=== PATIENT | female | born 2000 | race Caucasian/White ===

== ENCOUNTER 2018-01-04 05:37 | Emergency (ER) | payer MEDICAID ==
[~2018-01-04] VITALS: Ht 170.2 cm; Wt 115.2 kg
[~2018-01-04 05:37] MED LIST: METO-292 PO; ONDA4TAB6 PO; ONDA8TAB9 PO; POLY119P2 PO; PROC-8; SENN-121 PO; SUCR1ORA2 PO
[2018-01-04] MEDS ORDERED: normal saline 1000ml 1,000 ML IV ONE (05:55)
[2018-01-04] MEDS ORDERED: morphine 4 MG/ML inj SYRINge IV ONE (05:55)
[2018-01-04] MEDS ORDERED: famotidine/PF 10 mg/ml inj IV ONE (05:55)
[2018-01-04] MEDS ORDERED: ondansetron/PF 4mg/2ml inj IV ONE (05:55)
[2018-01-04 06:15] LABS: BASOPHILS % (AUTO) 0.4 % (0-1); EOSINOPHILS % (AUTO) 0.2 % (0-6); HEMATOCRIT 38.5 % (35.0-45.0); HEMOGLOBIN 13.4 g/dl (12.0-16.0); LYMPHOCYTES % (AUTO) 26.5 % (21-51); MEAN CORPUSCULAR HEMOGLOBIN 27.8 PG (27.0-31.0); MEAN CORPUSCULAR HGB CONC 34.7 % (33.0-36.5); MEAN CORPUSCULAR VOLUME 80.2 FL (78-98); MEAN PLATELET VOLUME 8.8 FL (7.4-10.4); MONOCYTES # (AUTO) 0.5 X10'3 (0-0.9); MONOCYTES % (AUTO) 4.2 % (2-12); NEUTROPHILS # (AUTO) 7.8 X10'3 (1.8-7.7); NEUTROPHILS % (AUTO) 68.7 % (42-75); PLATELET COUNT 367 X10'3 (140-440); RED CELL DISTRIBUTION WIDTH 14.3 % (11.5-14.5); WHITE BLOOD COUNT 11.4 X10'3 (4.5-11.0)
[2018-01-04 06:18] LABS: CLARITY,URINE TURBID (Clear); COLOR,URINE YELLOW (Yellow); GLUCOSE, URINE NEGATIVE (Neg); KETONES,URINE TRACE mg/dl (Neg); LEUKOCYTE ESTERASE ,URINE NEGATIVE (Neg); NITRITES, URINE NEGATIVE (Neg); OCCULT BLOOD,URINE NEGATIVE (Neg); PH,URINE 5.5 (4.8-8.0); PROTEIN,URINE TRACE mg/dl (Neg); UROBILINOGEN,URINE 0.2 E.U/dL (0.2-1.0)
[2018-01-04 06:19] LABS: UA COLLECTION TYPE CLN CATCH MIDSTREAM
[2018-01-04] MEDS ORDERED: SUMAtriptan succ. 6 MG/0.5ml vial SQ ONE (06:20)
[2018-01-04 06:21] LABS: URINE HCG POSITIVE (NEG)
[2018-01-04 06:26] LABS: BACTERIA,URINE NONE SEEN /HPF (Neg); MUCUS STRANDS NONE SEEN /LPF (Neg); RBC,URINE NONE SEEN /HPF (0-2); SQUAMOUS EPITHELIAL CELL,UR MANY /LPF (FEW); WBC,URINE NONE SEEN /HPF (0-4)
[2018-01-04 06:27] LABS: AMORPHOUS URATES 2+
[2018-01-04 06:32] LABS: ALANINE AMINOTRANSFERASE 22 U/L (12-78); ALBUMIN 3.9 G/DL (3.4-5.0); ALBUMIN/GLOBULIN RATIO 0.9 (1.1-1.5); ALKALINE PHOSPHATASE 60 IU/L (20-180); ANION GAP 14 (8-16); ASPARTATE AMINO TRANSFERASE 18 U/L (10-37); BILIRUBIN,TOTAL 0.5 MG/DL (0.1-1.0); BLOOD UREA NITROGEN 9 MG/DL (7-18); BUN/CREATININE RATIO 9.5 (6.6-38.0); CALCIUM 9.3 MG/DL (8.5-10.1); CHLORIDE 101 MMOL/L (99-107); CREATININE 0.95 MG/DL (0.40-0.90); GLUCOSE 114 MG/DL (70-104); POTASSIUM 3.1 MMOL/L (3.5-5.1); SODIUM 136 MMOL/L (135-145); TOTAL CARBON DIOXIDE 21.2 MMOL/L (24-32); TOTAL PROTEIN 8.1 G/DL (6.4-8.2); eGFR 76 ML/MIN
[2018-01-04 06:35] LABS: PROTHROMBIN TIME 10.7 SECONDS (9.0-12.0)
[2018-01-04 06:50] LABS: LIPASE 74 U/L (73-393)
[2018-01-04 07:11] LABS: BETA HCG,QUANTITATIVE 996 mIU/ml
[2018-01-04] MEDS ORDERED: LORazepam 2 mg/ml vial IV ONE (07:20)
[2018-01-04] MEDS ORDERED: POTA10CA44 PO (08:11)
[2018-01-04] MEDS ORDERED: PREN1TAB79 PO (08:11)
[2018-01-04] MEDS ORDERED: PYRI50TA10 PO (08:11)
[2018-01-04] MEDS ORDERED: PYRI25TA4 PO (08:11)
[2018-01-04] MEDS ORDERED: meclizine 12.5mg tablet PO ONE (08:35)
[2018-01-04 09:01] VITALS: BP 146/78
== END 2018-01-04 09:00 | disposition home or self-care (01) ==
LOC: ER 05:37
DX: O21.9 Vomiting of pregnancy, unspecified (principal); O26.891 Other specified pregnancy related conditions, first trimester; G43.A0 Cyclical vomiting, in migraine, not intractable; J45.909 Unspecified asthma, uncomplicated; K21.9 Gastro-esophageal reflux disease without esophagitis; F12.10 Cannabis abuse, uncomplicated; Z88.1 Allergy status to other antibiotic agents; Z3A.01 Less than 8 weeks gestation of pregnancy
CPT/HCPCS: 36415; 76817; 80053; 81001; 81025; 83690; 84702; 85025; 85610; 96361; 96372; 96374; 96375; 99285; J2060; J2270; J2405; J3030; J3490; J7030; J8597

== ENCOUNTER 2018-04-29 08:08 | Emergency (ER) | payer MEDICAID ==
[~2018-04-29] VITALS: Ht 170.2 cm; Wt 112.7 kg
[~2018-04-29 08:08] MED LIST changes: +PREN1TAB79 PO; +PYRI25TA4 PO; +PYRI50TA10 PO
[2018-04-29 08:52] LABS: URINE HCG NEGATIVE (NEG)
[2018-04-29 08:53] LABS: CLARITY,URINE CLOUDY (Clear); COLOR,URINE RED (Yellow)
[2018-04-29 08:55] LABS: UA COLLECTION TYPE CLN CATCH MIDSTREAM
[2018-04-29 08:58] LABS: BACTERIA,URINE FEW /HPF (Neg); MUCUS STRANDS MODERATE /LPF (Neg); RBC,URINE 20-50 /HPF (0-2); SQUAMOUS EPITHELIAL CELL,UR FEW /LPF (FEW)
[2018-04-29 08:59] LABS: AMORPHOUS URATES 1+
[2018-04-29] MEDS ORDERED: NITR100C6 PO (09:14)
[2018-04-29] MEDS ORDERED: ketorolac trometh inj. 60 MG/2 ML VIAL IM ONE (09:15)
[2018-04-29 09:25] VITALS: BP 134/63
== END 2018-04-29 09:27 | disposition home or self-care (01) ==
LOC: ER 08:08
DX: N39.0 Urinary tract infection, site not specified (principal); J45.909 Unspecified asthma, uncomplicated; K21.9 Gastro-esophageal reflux disease without esophagitis; G89.29 Other chronic pain; F12.90 Cannabis use, unspecified, uncomplicated; Z88.1 Allergy status to other antibiotic agents; Z90.89 Acquired absence of other organs; Z79.899 Other long term (current) drug therapy
CPT/HCPCS: 81001; 81025; 87088; 96372; 99283; J1885